=== PATIENT | female | born 1990 | race Caucasian/White ===

== ENCOUNTER 2017-03-17 16:19 | Emergency (ER) | payer OTHER ==
[~2017-03-17] VITALS: Ht 154.9 cm; Wt 66.7 kg
[2017-03-17 17:01] LABS: URINE SOURCE CLEAN CATCH
[2017-03-17 17:10] LABS: BASOPHIL% 0.4 % (0-2.5); HEMOGLOBIN 13.7 gm/dL (12.0-16.0); LYMPHOCYTE# 0.8 X10e3 (1.0-3.5); LYMPHOCYTE% 10.1 % (17.0-45.0); MEAN CELL VOLUME 86.9 FL (83-96); MEAN CORPUSCULAR HEMOGLOBIN 29.1 PG (28-34); MEAN CORPUSCULAR HGB CONC 33.5 g/dL (30-36); MEAN PLATELET VOLUME 8.3 FL (6.5-11.5); MONOCYTE# 0.2 X10e3 (0-1.0); MONOCYTE% 2.3 % (3.0-12.0); NEUTROPHIL# 7.1 X10e3 (1.5-7.1); NEUTROPHIL% 87.2 % (40-75); PLATELET COUNT 330 X10e3 (140-420); RED BLOOD COUNT 4.71 X10e (3.90-5.30); RED CELL DISTRIBUTION WIDTH 13.2 % (11.0-15.5); WHITE BLOOD COUNT 8.1 X10e3 (4.0-10.5)
[2017-03-17 17:22] LABS: DIFF IND NO
[2017-03-17 17:26] LABS: URINE APPEARANCE CLEAR; URINE BILIRUBIN NEG (NEG); URINE BLOOD 2+ (NEG); URINE COLOR DK YELLOW; URINE GLUCOSE NEG (NEG); URINE KETONE NEG (NEG); URINE LEUKOCYTE ESTERASE TRACE (NEG); URINE NITRATE NEG (NEG); URINE PROTEIN 1+ (NEG)
[2017-03-17 17:29] LABS: URINE BACTERIA AUWI NEG (NEGATIVE); URINE SQUAMOUS EPITHELIAL CELL OCC /[HPF]; UWBCS1 AUWI 0-2 (0-5)
[2017-03-17 17:31] LABS: ALBUMIN SERUM 4.7 g/dL (3.5-5.0); ALKALINE PHOSPHATASE 36 U/L (32-92); ALT (SGPT) 20 U/L (10-40); AST (SGOT) 14 U/L (10-42); BILIRUBIN, DIRECT <0.1 mg/dL (0.0-0.2); BILIRUBIN,INDIRECT 0.6 mg/dL (0.0-0.9); BILIRUBIN,TOTAL 0.7 mg/dL (0.2-2.0); BLOOD UREA NITROGEN 11 mg/dL (9-23); BUN/CREATININE RATIO 13.75; CALCIUM SERUM 9.3 mg/dL (8.4-10.2); CARBON DIOXIDE 26 mmol/L (22-31); CHLORIDE 107 mmol/L (100-111); CREATININE SERUM 0.8 mg/dL (0.6-1.4); GLOM FILT RATE Estimated 100.4 mL/min (>60); GLUCOSE FASTING 121 mg/dL (70-110); LIPASE 18 U/L (22-51); POTASSIUM 4.1 mmol/L (3.5-5.1); PROTEIN TOTAL SERUM 8.2 g/dL (6.0-8.3); SODIUM 140 mmol/L (135-145)
[2017-03-17 17:39] LABS: CULTURE INDICATED? NO
== END 2017-03-17 19:48 | disposition home or self-care (01) ==
LOC: CED 16:19
PROVIDERS: Emergency Medicine
DX: R11.2 Nausea with vomiting, unspecified (principal)
CPT/HCPCS: 36415; 80048; 80076; 81003; 83690; 85025; 96361; 96374; 99284; J2405